=== PATIENT | male | born 1980 | race African-American/Black ===

== ENCOUNTER → 2016-10-30 | Day surgery (SDC) | payer OTHER ==
--- NOTE | 2016-10-30 15:35 | RADIOLOGY REPORT (SQ) ---
EXAM DESCRIPTION: FLUORO/NEEDLE PLACEMENT; ARTHRO SHOULDER INJECTION COMPLETED DATE/TIME: 10/30/2016 2:53 pm REASON FOR STUDY: ROTATOR CUFF TEAR M25.511 PAIN IN RIGHT SHOULDER COMPARISON: None. FLUOROSCOPY TIME: 24 seconds 1 digital radiographic image saved to PACS. LIMITATIONS: None. PROCEDURE: Procedure, risks, benefits and alternatives explained to patient who then gave written co nsent. The right shoulder was marked and a time out was called for correct procedure verification. P osterior entry site marked using fluoroscopic guidance. Shoulder prepped and draped using sterile te chnique. Local anesthesia achieved using 6 mL of 1% lidocaine injection. 20 gauge spinal needle int roduced into the joint space under direct fluoroscopic visualization. Non-ionic contrast instilled to confirm intra-articular position. Dilute gadolinium solution then injected. Needle removed and entr y site covered with sterile bandage. No immediate complications noted. TECHNIQUE: Digital images acquired during fluoroscopy and stored on PACS. Patient immediately take n to the MR suite for additional imaging. INJECTION LOCATION: Right posterior glenohumeral joint CONTRAST TYPE AND AMOUNT: 0.5 mL of Isovue-300 was injected to confirm intra-articular needle placeme nt, followed by 9 mL of dilute gadolinium for MR arthrogram IMPRESSION: SUCCESSFUL NEEDLE PLACEMENT AND INJECTION FOR RIGHT SHOULDER MR ARTHROGRAM USING POSTERI OR APPROACH. COMMENT: Quality ID [id number]: Final reports for procedures using fluoroscopy that document radiation exp osure indices, or exposure time and number of fluorographic images (if radiation exposure indices are not available) TECHNICAL DOCUMENTATION: JOB ID: [id number] [employer]- All Rights Reserved
--- NOTE | 2016-10-30 16:45 | RADIOLOGY REPORT (SQ) ---
EXAM DESCRIPTION: MRI RT UPPER JOINT WITH COMPLETED DATE/TIME: 10/30/2016 4:28 pm REASON FOR STUDY: ROTATOR CUFF TEAR M25.511 PAIN IN RIGHT SHOULDER COMPARISON: None. TECHNIQUE: Right shoulder images acquired post arthrogram and stored on PACS. Multiplanar imaging to include fat sensitive sequences such as T1, water sensitive sequences such as FST2/STIR, cartilage s ensitive sequences such as FSPD/gradient-echo sequences. LIMITATIONS: None. FINDINGS: BONE MARROW AND CORTEX: No findings worrisome for occult fracture. Mild edema is seen in the anterior right humeral head greater tuberosity adjacent to the upper edge bicipital grove, axial image 10 and sagittal image 6. Tiny subcortical cyst posterior right humeral head greater tuberosity . JOINT OR BURSAL EFFUSION: Adequate joint distention with dilute gadolinium contrast. Trace fluid in the subacromial/subdeltoid bursa without gadolinium indicating mild bursitis. GLENO-HUMERAL ARTICULATION: Normal articulation. No subluxation. No cystic change. No osteophytes or cartilage loss. ACROMION AND AC JOINT: Type 2 with bulky acromioclavicular joint hypertrophy, flattening the superio r margin of the supraspinatus tendon and muscle best shown on sagittal image 12 and coronal image 9. ROTATOR CUFF AND INTERVAL: Mild increased intrinsic signal of the anterior edge supraspinatus tendon at its insertion on the anterior greater tuberosity with adjacent bony edema. Remainder of the rotat or cuff is intact. No cuff muscle atrophy. No rotator interval tear. No rotator interval thickening to suggest adhesive capsulitis. LABRUM AND BICEPS LABRAL COMPLEX: Intact. No labral tear. Intra-articular long-head biceps tendon n ormal. Distal biceps in normal location in bicipital groove. REMAINDER OF LABRUM AND IGHL : No gross tear or paralabral cyst formation. Labral evaluation is less than optimal without joint distention. No thickening of IGHL to suggest adhesive capsulitis. PERIARTICULAR AND ADJACENT SOFT TISSUES: No masses or abnormal nodes. OTHER: No other significant finding. IMPRESSION: Acromioclavicular joint hypertrophy Small amount of subacromial/subdeltoid fluid from bursitis. Mild tendinopathy anterior edge of the supraspinatus tendon with adjacent reactive marrow edema in th e anterior edge greater tuberosity right humeral head TECHNICAL DOCUMENTATION: JOB ID: [id number] [employer]- All Rights Reserved
== END ==
LOC: RAD 14:12
PROVIDERS: ATTEND Nuclear Medicine
PROC: BP09ZZZ Plain Radiography of Left Shoulder (ICD-10-PCS; principal; 2016-10-30)
DX: M25.511 Pain in right shoulder (principal)
CPT/HCPCS: 73222; 77002; 23350; A9576